=== PATIENT | female | born 1960 | race Native Hawaiian/Other Pacific Islander ===

== ENCOUNTER 2017-04-27 04:13 | Inpatient (IN) | payer OTHER ==
[2017-04-27] MEDS ORDERED: ASPIRIN PO ONE ×2 (05:00→07:20)
[2017-04-27 05:27] LABS: Basophils % (Auto) 0.7 % (0.0-1.8); Eosinophils # (Auto) 0.2 K/mm3 (0.0-0.4); Eosinophils % (Auto) 4.4 % (0.0-4.3); Hematocrit 41.4 % (30.3-42.9); Hemoglobin 14.1 gm/dl (10.1-14.3); Lymphocytes # (Auto) 0.9 K/mm3 (1.2-5.4); Lymphocytes % (Auto) 18.8 % (13.4-35.0); Mean Corpuscular HGB Conc 34 % (30-34); Mean Corpuscular Hemoglobin 32 pg (28-32); Mean Corpuscular Volume 94 fl (79-97); Monocytes # (Auto) 0.3 K/mm3 (0.0-0.8); Monocytes % (Auto) 6.6 % (0.0-7.3); Platelet Count 209 K/mm3 (140-440); Red Blood Count 4.41 M/mm3 (3.65-5.03); Red Cell Distribution Width 12.8 % (13.2-15.2)
[2017-04-27 05:45] LABS: BUN/Creatinine Ratio 20; Blood Urea Nitrogen 10 mg/dL (7-17); Calcium 9.2 mg/dL (8.4-10.2); Hemolysis Index 36
--- NOTE | 2017-04-27 06:41 | Emergency Department Report ---
ED Chest Pain HPI - General Chief Complaint: Chest Pain Stated Complaint: CHEST PAIN Time Seen by Provider: 04/27/17 06:40 Source: patient, EMS Mode of arrival: Stretcher Limitations: Language Barrier - History of Present Illness Initial Comments: The patient is very pleasant Khmer-speaking female who states he's never experienced chest pain or pressure like she did yesterday. She stated that it was quite persistent during the day but now it has resolved. She states that she has not been previously diagnosed with hypertension. However she has not seen a doctor for at least 2 years. She has had no prior workup for chest pain. She also had some headache earlier which is moderate in intensity. This is now resolved. She was given clonidine which was associated with a decrease in her blood pressure as well as her symptoms. MD Complaint: chest pain -: hour(s) Onset: during rest Pain Location: substernal, left chest Pain Radiation: none Severity scale (0 -10): 6 Quality: pressure Consistency: now resolved Improves With: nothing Worsens With: nothing re: dyspnea, other (headache). denies: nausea, vomting, diaphoresis Other Symptoms: denies: cough, fever, syncope Treatments Prior to Arrival: none - Related Data Allergies Allergy/AdvReac Type Severity Reaction Status Date / Time No Known Allergies Allergy Unverified 04/27/17 04:55 Heart Score - HEART Score History: Moderately suspicious EKG: Normal Age: 45-65 Risk factors: 1-2 risk factors Troponin: < normal limit HEART Score: 3 ED Review of Systems ROS: Stated complaint: CHEST PAIN Other details as noted in HPI Constitutional: denies: chills, fever Eyes: denies: eye pain, eye discharge, vision change ENT: denies: ear pain, throat pain Respiratory: shortness of breath. denies: cough, wheezing Cardiovascular: chest pain. denies: palpitations Endocrine: no symptoms reported Gastrointestinal: denies: abdominal pain, nausea, diarrhea Genitourinary: denies: urgency, dysuria, discharge Musculoskeletal: denies: back pain, joint swelling, arthralgia Skin: denies: rash, lesions Neurological: denies: headache, weakness, paresthesias Psychiatric: denies: anxiety, depression Hematological/Lymphatic: denies: easy bleeding, easy bruising ED Past Medical Hx - Past Medical History Previous Medical History?: Yes Hx Hypertension: Yes - Surgical History Past Surgical History?: No - Social History Smoking Status: Never Smoker Substance Use Type: None ED Physical Exam - General Limitations: Other (history obtained by me in Khmer) General appearance: alert, in no apparent distress - Head Head exam: Present: atraumatic, normocephalic - Eye Eye exam: Present: normal appearance. Absent: scleral icterus - ENT ENT exam: Present: mucous membranes moist - Neck Neck exam: Present: normal inspection - Respiratory Respiratory exam: Present: normal lung sounds bilaterally. Absent: respiratory distress - Cardiovascular Cardiovascular Exam: Present: regular rate, normal rhythm. Absent: systolic murmur, diastolic murmur, rubs, gallop - GI/Abdominal GI/Abdominal exam: Present: soft, normal bowel sounds. Absent: distended, tenderness, guarding, rebound, rigid - Extremities Exam Extremities exam: Present: normal inspection - Back Exam Back exam: Present: normal inspection - Neurological Exam Neurological exam: Present: alert, oriented X3, CN II-XII intact. Absent: motor sensory deficit - Psychiatric Psychiatric exam: Present: normal affect, normal mood - Skin Skin exam: Present: warm, dry, intact, normal color. Absent: rash ED Course Vital Signs 04/27/17 04/27/17 04/27/17 04:55 05:32 07:36 Temperature 98.0 F 98.3 F 98.4 F Pulse Rate 89 75 66 Respiratory 16 16 Rate Blood Pressure 214/106 Blood Pressure 188/93 181/99 [Left] O2 Sat by Pulse 98 98 100 Oximetry - Reevaluation(s) Reevaluation #1: Nitro paste, aspirin, admission to telemetry by Dr. Farrell of the hospitalist service and patient is in stable condition. 04/27/17 07:38 NALDO score - Naldo Score Age > 65: (0) No Aspirin use within the Past 7 Days: (0) No 3 or more CAD Risk Factors: (1) Yes 2 or more Angina events in past 24 hrs: (1) Yes Known CAD with more than 50% Stenosis: (0) No Elevated Cardiac Markers: (0) No ST Deviation Greater than 0.5mm: (0) No NALDO Score: 2 ED Medical Decision Making - Lab Data Result diagrams: 04/27/17 05:07 04/27/17 05:07 Laboratory Results - last 24 hr 04/27/17 04/27/17 05:07 05:07 WBC 4.7 RBC 4.41 Hgb 14.1 Hct 41.4 MCV 94 MCH 32 MCHC 34 RDW 12.8 L Plt Count 209 Lymph % (Auto) 18.8 [place] % (Auto) 6.6 Eos % (Auto) 4.4 H Baso % (Auto) 0.7 Lymph # 0.9 L [place] # 0.3 Eos # 0.2 Baso # 0.0 Seg Neutrophils % 69.5 Seg Neutrophils # 3.3 Sodium 142 Potassium 4.1 Chloride 103.0 Carbon Dioxide 24 Anion Gap 19 BUN 10 Creatinine 0.5 L Estimated GFR > 60 BUN/Creatinine Ratio 20 Glucose 112 H Calcium 9.2 Troponin T < 0.010 - EKG Data -: EKG Interpreted by Me EKG shows normal: sinus rhythm, axis, intervals, QRS complexes, ST-T waves Rate: normal - EKG Data Interpretation: LVH (left axis voltage suggestive of LVH. Repolarization segments are acceptable) - Radiology Data interpreted by me: Chest x-ray no acute findings Critical care attestation.: If time is entered above; I have spent that time in minutes in the direct care of this critically ill patient, excluding procedure time. ED Disposition Clinical Impression: Uncontrolled hypertension Chest pain Qualifiers: Chest pain type: unspecified Qualified Code(s): R07.9 - Chest pain, unspecified Disposition: OP ADMIT IP TO THIS HOSP Is pt being admited?: Yes Does the pt Need Aspirin: Yes Condition: Stable Instructions: Chest Pain (ED), Hypertension (ED) Referrals: JAMILAH TOMAS MD [Primary Care Provider] - 3-5 Days Time of Disposition: 08:11
[2017-04-27] MEDS ORDERED: NITRO-BID 2% TP ONE (07:20)
[2017-04-27 08:22] LABS: Bacteria,Urine 1+ /HPF (Negative); Bilirubin,Urine NEG (Negative); Blood,Urine NEG (Negative); Color,Urine Straw (Yellow); Mucus,Urine FEW /HPF; Nitrite,Urine NEG (Negative); Protein,Urine <15 mg/dL mg/dL (Negative); RBC,Urine < 1.0 /HPF (0.0-6.0); Urobilinogen,Urine < 2.0 mg/dL (<2.0)
--- NOTE | 2017-04-27 09:17 | XRay Report ---
AP CHEST : 04/27/17 CLINICAL: Hypertension. COMPARISON:None FINDINGS: Normal heart and pulmonary vessels. The lungs are normally expanded and clear. The bones and soft tissues are unremarkable. IMPRESSION: Normal chest.
[2017-04-27] MEDS ORDERED: TYLENOL PO PRN (11:38)
[2017-04-27] MEDS ORDERED: MILK OF MAGNESIA PO PRN (11:38)
[2017-04-27] MEDS ORDERED: PERCOCET 5/325 PO PRN (11:38)
[2017-04-27] MEDS ORDERED: ZOFRAN IV PRN (11:38)
[2017-04-27] MEDS ORDERED: AMBIEN PO PRN (11:38)
[2017-04-27] MEDS ORDERED: DULCOLAX PR PRN (11:38)
[2017-04-27] MEDS ORDERED: MORPHINE IV PRN ×2 (11:38)
--- NOTE | 2017-04-27 11:38 | History and Physical Report ---
History of Present Illness Date of examination: 04/27/17 Date of admission: 04/27/17 Chief complaint: CC L side Cp since yesterday History of present illness: History of Present Illness Very pleasant Vietnamese-speaking female comes in for chest pain since yesterday. She stated that it was quite persistent during the day but now it has resolved. She states that she has not been previously diagnosed with hypertension. However she has not seen a doctor for at least 2 years. She has had no prior workup for chest pain. She also had some headache earlier which is moderate in intensity. This is now resolved. She was given clonidine which was associated with a decrease in her blood pressure as well as her symptoms.Pain is 6/10.Dull intermittent.No diaphoresis or SOB.No palpitations.No fever or chills.No exacerbating or relieving factors. Past Medical History Previous Medical History?: Yes Hx Hypertension: Yes - Surgical History Past Surgical History?: No - Social History Smoking Status: Never Smoker Substance Use Type: None Fam Hx Htn Medications and Allergies Allergies Allergy/AdvReac Type Severity Reaction Status Date / Time No Known Allergies Allergy Unverified 04/27/17 04:55 Review of Systems All systems: negative Exam - Constitutional Vitals: Temp Pulse Resp BP Pulse Ox 98.3 F 78 16 157/79 100 04/27/17 10:30 04/27/17 10:30 04/27/17 10:30 04/27/17 10:30 04/27/17 10:30 General appearance: Present: no acute distress, well-nourished - EENT Eyes: Present: PERRL ENT: hearing intact, clear oral mucosa - Neck Neck: Present: supple, normal ROM - Respiratory Respiratory effort: normal Respiratory: bilateral: CTA - Cardiovascular Heart rate: 78 Rhythm: regular Heart Sounds: Present: S1 & S2. Absent: rub, click - Extremities Extremities: no ischemia, pulses intact, pulses symmetrical, No edema Peripheral Pulses: within normal limits - Abdominal General gastrointestinal: Present: soft, non-tender, non-distended, normal bowel sounds Female genitourinary: Present: normal - Rectal Rectal Exam: deferred - Integumentary Integumentary: Present: clear, warm, dry - Musculoskeletal Musculoskeletal: gait normal, strength equal bilaterally - Psychiatric Psychiatric: appropriate mood/affect, intact judgment & insight - Neurologic Neurologic: CNII-XII intact, moves all extremities - Allied Health Allied health notes reviewed: nursing, case management Results - Labs CBC & Chem 7: 04/28/17 05:55 04/28/17 05:55 Labs: Laboratory Last Values WBC 4.7 K/mm3 (4.5-11.0) 04/27/17 05:07 RBC 4.41 M/mm3 (3.65-5.03) 04/27/17 05:07 Hgb 14.1 gm/dl (10.1-14.3) 04/27/17 05:07 Hct 41.4 % (30.3-42.9) 04/27/17 05:07 MCV 94 fl (79-97) 04/27/17 05:07 MCH 32 pg (28-32) 04/27/17 05:07 MCHC 34 % (30-34) 04/27/17 05:07 RDW 12.8 % (13.2-15.2) L 04/27/17 05:07 Plt Count 209 K/mm3 (140-440) 04/27/17 05:07 Lymph % (Auto) 18.8 % (13.4-35.0) 04/27/17 05:07 [place] % (Auto) 6.6 % (0.0-7.3) 04/27/17 05:07 Eos % (Auto) 4.4 % (0.0-4.3) H 04/27/17 05:07 Baso % (Auto) 0.7 % (0.0-1.8) 04/27/17 05:07 Lymph # 0.9 K/mm3 (1.2-5.4) L 04/27/17 05:07 [place] # 0.3 K/mm3 (0.0-0.8) 04/27/17 05:07 Eos # 0.2 K/mm3 (0.0-0.4) 04/27/17 05:07 Baso # 0.0 K/mm3 (0.0-0.1) 04/27/17 05:07 Seg Neutrophils % 69.5 % (40.0-70.0) 04/27/17 05:07 Seg Neutrophils # 3.3 K/mm3 (1.8-7.7) 04/27/17 05:07 POC ABG pH 7.418 (7.35-7.45) 04/27/17 09:37 POC ABG pCO2 45.2 (35-45) H 04/27/17 09:37 POC ABG pO2 54 (80-105) L 04/27/17 09:37 POC ABG HCO3 29.2 04/27/17 09:37 POC ABG Total CO2 31 04/27/17 09:37 POC ABG O2 Sat 88 04/27/17 09:37 POC ABG Base Excess 5 04/27/17 09:37 VBG pH 7.418 (7.320-7.420) 04/27/17 09:00 FiO2 21 % 04/27/17 09:37 Sodium 142 mmol/L (137-145) 04/27/17 05:07 Potassium 4.1 mmol/L (3.6-5.0) 04/27/17 05:07 Chloride 103.0 mmol/L (98-107) 04/27/17 05:07 Carbon Dioxide 24 mmol/L (22-30) 04/27/17 05:07 Anion Gap 19 mmol/L 04/27/17 05:07 BUN 10 mg/dL (7-17) 04/27/17 05:07 Creatinine 0.5 mg/dL (0.7-1.2) L 04/27/17 05:07 Estimated GFR > 60 ml/min 04/27/17 05:07 BUN/Creatinine Ratio 20 % 04/27/17 05:07 Glucose 112 mg/dL (65-100) H 04/27/17 05:07 Calcium 9.2 mg/dL (8.4-10.2) 04/27/17 05:07 Troponin T < 0.010 ng/mL (0.00-0.029) 04/27/17 10:53 Urine Color Straw (Yellow) 04/27/17 07:47 Urine Turbidity Clear (Clear) 04/27/17 07:47 Urine pH 7.0 (5.0-7.0) 04/27/17 07:47 Ur Specific [place] 1.008 (1.003-1.030) 04/27/17 07:47 Urine Protein <15 mg/dl mg/dL (Negative) 04/27/17 07:47 Urine Glucose (UA) Neg mg/dL (Negative) 04/27/17 07:47 Urine Ketones Neg mg/dL (Negative) 04/27/17 07:47 Urine Blood Neg (Negative) 04/27/17 07:47 Urine Nitrite Neg (Negative) 04/27/17 07:47 Urine Bilirubin Neg (Negative) 04/27/17 07:47 Urine Urobilinogen < 2.0 mg/dL (<2.0) 04/27/17 07:47 Ur Leukocyte Esterase Tr (Negative) 04/27/17 07:47 Urine WBC (Auto) 1.0 /HPF (0.0-6.0) 04/27/17 07:47 Urine RBC (Auto) < 1.0 /HPF (0.0-6.0) 04/27/17 07:47 U Epithel Cells (Auto) < 1.0 /HPF (0-13.0) 04/27/17 07:47 Urine Bacteria (Auto) 1+ /HPF (Negative) 04/27/17 07:47 Urine Mucus Few /HPF 04/27/17 07:47 Short CBC 04/28/17 Range/Units 05:55 WBC 4.4 L (4.5-11.0) K/mm3 Hgb 13.7 (10.1-14.3) gm/dl Hct 40.9 (30.3-42.9) % Plt Count 199 (140-440) K/mm3 BMP 04/28/17 05:55 Sodium 145 Potassium 3.9 Chloride 106.0 Carbon Dioxide 27 BUN 18 H Creatinine 0.7 Glucose 102 H Calcium 9.1 Cardiac Enzymes 04/27/17 04/27/17 04/27/17 Range/Units 08:10 10:53 11:45 Total Creatine Kinase 54 (30-135) units/L CK-MB (CK-2) 1.6 (0.0-4.0) ng/mL Troponin T < 0.010 < 0.010 < 0.010 (0.00-0.029) ng/mL 04/27/17 04/28/17 Range/Units 18:40 00:00 Total Creatine Kinase 56 44 (30-135) units/L CK-MB (CK-2) 1.5 1.2 (0.0-4.0) ng/mL Troponin T < 0.010 < 0.010 (0.00-0.029) ng/mL Liver Function 04/28/17 Range/Units 05:55 Total Bilirubin 1.20 (0.1-1.2) mg/dL AST 32 (5-40) units/L ALT 49 (7-56) units/L Alkaline Phosphatase 59 (35-129) units/L Albumin 3.9 (3.9-5) g/dL Urine 04/27/17 Range/Units 07:47 Urine Color Straw (Yellow) Urine pH 7.0 (5.0-7.0) Ur Specific [place] 1.008 (1.003-1.030) Urine Protein <15 mg/dl (Negative) mg/dL Urine Glucose (UA) Neg (Negative) mg/dL - Imaging and Cardiology EKG: report reviewed (NSR) Chest x-ray: report reviewed (NAF) Assessment and Plan Advance Directives: Yes (Full code) VTE prophylaxis?: Chemical Plan of care discussed with patient/family: Yes - Patient Problems (1) Chest pain Current Visit: Yes Status: Acute Qualifiers: Chest pain type: unspecified Qualified Code(s): R07.9 - Chest pain, unspecified Plan to address problem: Chest pain w/u. Serial cardiac enzymes and lexiscan in am R/o Gastritis and costochondritis (2) Uncontrolled hypertension Current Visit: Yes Status: Chronic Plan to address problem: Patient initiated on Losartan 100 mg po qd (3) DVT prophylaxis Current Visit: Yes Status: Acute Plan to address problem: on Lovenox
[2017-04-27] MEDS: PEPCID PO SCH ×2 (12:11→22:10)
[2017-04-27] MEDS: LOVENOX SUB-Q SCH (12:13)
[2017-04-27 13:39] LABS: Creatine Kinase MB 1.6 ng/mL (0.0-4.0)
[2017-04-27 19:27] LABS: Creatine Kinase MB 1.5 ng/mL (0.0-4.0)
[2017-04-28 00:48] LABS: Creatine Kinase MB 1.2 ng/mL (0.0-4.0)
[2017-04-28 06:50] LABS: Basophils % (Auto) 0.6 % (0.0-1.8); Eosinophils # (Auto) 0.2 K/mm3 (0.0-0.4); Eosinophils % (Auto) 4.6 % (0.0-4.3); Hematocrit 40.9 % (30.3-42.9); Hemoglobin 13.7 gm/dl (10.1-14.3); Lymphocytes # (Auto) 1.3 K/mm3 (1.2-5.4); Lymphocytes % (Auto) 28.6 % (13.4-35.0); Mean Corpuscular HGB Conc 34 % (30-34); Mean Corpuscular Hemoglobin 32 pg (28-32); Mean Corpuscular Volume 95 fl (79-97); Monocytes # (Auto) 0.3 K/mm3 (0.0-0.8); Monocytes % (Auto) 7.4 % (0.0-7.3); Platelet Count 199 K/mm3 (140-440); Red Blood Count 4.32 M/mm3 (3.65-5.03); Red Cell Distribution Width 13.1 % (13.2-15.2)
[2017-04-28 07:15] LABS: Alanine Aminotransferase 49 units/L (7-56); Albumin 3.9 g/dL (3.9-5); BUN/Creatinine Ratio 26; Blood Urea Nitrogen 18 mg/dL (7-17); Calcium 9.1 mg/dL (8.4-10.2); Hemolysis Index 2
[2017-04-28] MEDS ORDERED: LEXISCAN IV ONE ×2 (08:09→08:19)
[2017-04-28] MEDS: PEPCID PO SCH ×2 (10:45→21:48)
[2017-04-28] MEDS: LOVENOX SUB-Q SCH (13:45)
[2017-04-29] MEDS ORDERED: APRESOLINE IV PRN (00:17)
--- NOTE | 2017-04-29 00:55 | Treadmill Report ---
NUCLEAR PERFUSION SCAN REFERRING PHYSICIAN: Dr. Polanco. PROTOCOL: The patient was brought to the stress lab in post-absorptive state, given 10 mCi of technetium 99m at rest. The patient underwent rest imaging. The patient underwent Lexiscan stress test per standard protocol. At peak stress, the patient was given 26 mCi of technetium 99m. Shortly thereafter, the patient underwent stress imaging. Raw imaging reveals mild GI artifact, no significant motion artifact. SPECT imaging examined carefully in horizontal long axis, vertical long axis, and short axis views. There is normal homogenous uptake of radioisotope in all reported segments. No evidence of a significant fixed or reversible perfusion defect suggestive of prior infarction or ischemia. Gated wall motion reveals normal systolic thickening, calculated ejection fraction of 55%. No TID. CONCLUSIONS: 1. Normal myocardial perfusion scan without evidence of active ischemia or prior infarction. 2. Normal left ventricular systolic performance without evidence of transient ischemic dilatation or stress-induced segmental wall motion abnormalities. JOB# [id number] SHANE/TANIA
[2017-04-29] MEDS: LOVENOX SUB-Q SCH (10:24)
[2017-04-29] MEDS: PEPCID PO SCH (12:25)
[2017-04-29] MEDS ORDERED: ZESTRIL PO SCH (13:00)
[2017-04-29] MEDS ORDERED: NORVASC PO SCH (13:00)
--- NOTE | 2017-04-29 13:25 | Progress Note ---
Subjective Date of service: 04/28/17 Objective - Constitutional Vitals: Vital Signs - 12hr 04/29/17 04/29/17 04/29/17 04:23 08:47 08:58 Temperature 98.4 F Pulse Rate 74 84 Respiratory 20 Rate Blood Pressure 188/93 174/106 174/106 O2 Sat by Pulse 96 97 Oximetry - Labs CBC & Chem 7: 04/28/17 05:55 04/28/17 05:55
[2017-04-29 13:43] VITALS: BP 169/94
--- NOTE | 2017-04-29 14:19 | Discharge Summary ---
Providers - Providers Date of Admission: 04/27/17 16:46 Date of discharge: 04/29/17 Attending physician: ELMO GODINEZ none Primary care physician: JAMILAH TOMAS Hospitalization Reason for admission: chest pain Condition: Stable Pertinent studies: Stress thallium Procedures: none Hospital course: Patient is a 56 y/o very pleasant Turkmen-speaking female comes in for chest pain since yesterday. She stated that it was quite persistent during the day but now it has resolved. She states that she has not been previously diagnosed with hypertension. However she has not seen a doctor for at least 2 years. She has had no prior workup for chest pain. She also had some headache earlier which is moderate in intensity. This is now resolved. She was given clonidine which was associated with a decrease in her blood pressure as well as her symptoms.Pain is 6/10.Dull intermittent.No diaphoresis or SOB.No palpitations.No fever or chills.No exacerbating or relieving factors. on admission she was commenced on Disposition: TO HOME OR SELFCARE Core Measure Documentation - Palliative Care Palliative Care/ Comfort Measures: Not Applicable Exam - Constitutional Vitals: Temp Pulse Resp BP Pulse Ox 97.4 F L 109 H 20 169/94 97 04/29/17 12:30 04/29/17 12:30 04/29/17 04:23 04/29/17 12:30 04/29/17 08:47 General appearance: Present: no acute distress, well-nourished - EENT Eyes: Present: PERRL - Neck Neck: Present: supple, normal ROM - Respiratory Respiratory effort: normal Respiratory: bilateral: CTA - Cardiovascular Heart Sounds: Present: S1 & S2. Absent: rub, click - Extremities Extremities: pulses symmetrical, No edema Peripheral Pulses: within normal limits - Abdominal General gastrointestinal: Present: soft, non-tender, non-distended, normal bowel sounds Female genitourinary: Present: normal - Integumentary Integumentary: Present: clear, warm, dry - Musculoskeletal Musculoskeletal: gait normal, strength equal bilaterally - Psychiatric Psychiatric: appropriate mood/affect, intact judgment & insight - Neurologic Neurologic: CNII-XII intact, moves all extremities Plan Activity: advance as tolerated, fall precautions Diet: regular Wound: open to air Follow up with: JAMILAH TOMAS MD [Primary Care Provider] - 3-5 Days Prescriptions: amLODIPine [Norvasc] 10 mg PO QDAY #30 tablet Famotidine [Pepcid] 20 mg PO BID #60 tablet Lisinopril [Zestril TAB] 40 mg PO QDAY #30 tablet Temazepam 15 mg PO DAILY #24 capsule
== END 2017-04-29 15:12 | disposition home or self-care (01) | DRG 313 ==
LOC: ED 04:13 → 4A 16:46
PROVIDERS: ADMIT Internal Medicine; ATTEND Family Medicine
DX: R07.9 Chest pain, unspecified (principal); I10 Essential (primary) hypertension
CPT/HCPCS: 36415; 71045; 78452; 80048; 80053; 81001; 82550; 82553; 82803; 82805; 82962; 83036; 84484; 85025; 93005; 93010; 93017; 99285; A9502; J0360; J1650; J2270; J2785

== ENCOUNTER 2017-06-08 02:58 | Inpatient (IN) | payer SELFPAY ==
[2017-06-08] MEDS ORDERED: ASPIRIN PO ONE (04:33)
[2017-06-08 05:53] LABS: BUN/Creatinine Ratio 32; Blood Urea Nitrogen 16 mg/dL (7-17); Calcium 9.5 mg/dL (8.4-10.2); Hemolysis Index 6
[2017-06-08 05:59] LABS: Basophils % (Auto) 0.4 % (0.0-1.8); Eosinophils # (Auto) 0.1 K/mm3 (0.0-0.4); Eosinophils % (Auto) 1.7 % (0.0-4.3); Hematocrit 40.1 % (30.3-42.9); Hemoglobin 13.5 gm/dl (10.1-14.3); Lymphocytes % (Auto) 16.4 % (13.4-35.0); Mean Corpuscular HGB Conc 34 % (30-34); Mean Corpuscular Hemoglobin 32 pg (28-32); Mean Corpuscular Volume 94 fl (79-97); Monocytes # (Auto) 0.3 K/mm3 (0.0-0.8); Monocytes % (Auto) 5.3 % (0.0-7.3); Platelet Count 243 K/mm3 (140-440); Red Blood Count 4.26 M/mm3 (3.65-5.03); Red Cell Distribution Width 13.2 % (13.2-15.2)
--- NOTE | 2017-06-08 06:50 | Emergency Department Report ---
HPI - General Chief Complaint: Neuro Symptoms/Deficit Time Seen by Provider: 06/08/17 06:33 - HPI HPI: Room 4 The patient is a 57-year-old female presenting with a chief complaint chest pressure and left-sided numbness. The patient states this morning at 01:00 she developed pressure in the left chest in addition to numbness of her left arm and left leg. Patient states the pressure and numbness has been coming and going but is currently absent. Patient denies nausea/vomiting or diaphoresis with her chest pressure. The patient states the top of her head felt hot. The patient last had a stress test last month Location: [See above] Duration: Intermittent since 01:00 Quality:, Pressure, Numbness Severity: Moderate Modifying factors: [see above] Context: [see above] Mode of transportation: [not driving] ED Past Medical Hx - Past Medical History Hx Hypertension: Yes - Surgical History Past Surgical History?: Yes Additional Surgical History: Hysterectomy - Family History Family history: no significant - Social History Smoking Status: Never Smoker Substance Use Type: None - Medications Home Medications: Home Medications Medication Instructions Recorded Confirmed Last Taken Type Famotidine [Pepcid] 20 mg PO BID #60 tablet 04/29/17 Unknown Rx Lisinopril [Zestril TAB] 40 mg PO QDAY #30 tablet 04/29/17 Unknown Rx Temazepam 15 mg PO DAILY #24 capsule 04/29/17 Unknown Rx amLODIPine [Norvasc] 10 mg PO QDAY #30 tablet 04/29/17 Unknown Rx ED Review of Systems ROS: Stated complaint: HTN Other details as noted in HPI Constitutional: denies: diaphoresis Respiratory: denies: shortness of breath Cardiovascular: chest pain (chest pressure) Gastrointestinal: denies: nausea, vomiting Neurological: denies: headache (head felt hot) Physical Exam - Physical Exam Vital Signs: Vital Signs 06/08/17 06/08/17 06/08/17 04:11 06:15 06:19 Temperature 97.5 F L Pulse Rate 73 Respiratory 18 18 Rate Blood Pressure 143/78 O2 Sat by Pulse 98 96 99 Oximetry 06/08/17 06:20 Temperature Pulse Rate Respiratory Rate Blood Pressure 128/73 O2 Sat by Pulse 95 Oximetry Physical Exam: GENERAL: The patient is well-developed well-nourished female lying on stretcher not appearing to be in acute distress. [] HEENT: Normocephalic. Atraumatic. Extraocular motions are intact. Patient has moist mucous membranes. NECK: Supple. No meningitic signs are noted. There is no adenopathy noted. CHEST/LUNGS: Clear to auscultation. There is no respiratory distress noted. HEART/CARDIOVASCULAR: Regular. There is no tachycardia. There is no gallop rub or murmur. ABDOMEN: Abdomen is soft, nontender. Patient has normal bowel sounds. There is no abdominal distention. SKIN: There is no rash. There is no edema. There is no diaphoresis. NEURO: The patient is awake, alert, and oriented. The patient is cooperative. The patient has no focal neurologic deficits. The patient has normal speech. Cranial nerves II through XII grossly intact, no drift MUSCULOSKELETAL: There is no evidence of acute injury. ED Course Vital Signs 06/08/17 06/08/17 06/08/17 04:11 06:15 06:19 Temperature 97.5 F L Pulse Rate 73 Respiratory 18 18 Rate Blood Pressure 143/78 O2 Sat by Pulse 98 96 99 Oximetry 06/08/17 06:20 Temperature Pulse Rate Respiratory Rate Blood Pressure 128/73 O2 Sat by Pulse 95 Oximetry ED Medical Decision Making - Lab Data Result diagrams: 06/08/17 05:13 06/08/17 05:13 Laboratory Tests 06/08/17 06/08/17 06/08/17 05:13 05:13 05:13 WBC 6.1 RBC 4.26 Hgb 13.5 Hct 40.1 MCV 94 MCH 32 MCHC 34 RDW 13.2 Plt Count 243 Lymph % (Auto) 16.4 [place] % (Auto) 5.3 Eos % (Auto) 1.7 Baso % (Auto) 0.4 Lymph # 1.0 L [place] # 0.3 Eos # 0.1 Baso # 0.0 Seg Neutrophils % 76.2 H Seg Neutrophils # 4.7 Sodium 143 Potassium 4.0 Chloride 101.2 Carbon Dioxide 26 Anion Gap 20 BUN 16 Creatinine 0.5 L Estimated GFR > 60 BUN/Creatinine Ratio 32 Glucose 108 H Calcium 9.5 Troponin T < 0.010 - EKG Data -: EKG Interpreted by Oh EKG shows normal: sinus rhythm Rate: normal - EKG Data When compared to previous EKG there are: no significant change Interpretation: unchanged when compared t (04/27/2017) - Radiology Data Radiology results: report reviewed (CT head), image reviewed (CT head) FINAL REPORT PROCEDURE: CT HEAD/BRAIN WO CON TECHNIQUE: Computerized tomography of the head was performed without contrast material. HISTORY: left-sided paresthesia COMPARISON: No prior studies are available for comparison. FINDINGS: Skull and scalp: Normal. Paranasal sinuses: Normal. Ventricles and subarachnoid spaces: Normal. Cerebrum: No evidence of hemorrhage, acute infarction or mass . Cerebellum and brainstem: No evidence of hemorrhage, acute infarction or mass. Vasculature: Normal. Comments: None. IMPRESSION: Normal Examination Transcribed By: CO Dictated By: TASHA KANG MD Electronically Authenticated By: TASHA KANG MD Signed Date/Time: 06/08/17338 DD/ 8 TD/TT: 06/08/17338 - Medical Decision Making NIHSS= 0 - Differential Diagnosis TIA, ACS, GERD, pericarditis Critical care attestation.: If time is entered above; I have spent that time in minutes in the direct care of this critically ill patient, excluding procedure time. ED Disposition Clinical Impression: TIA (transient ischemic attack), Chest pain, Left sided numbness Disposition: -09 OP ADMIT IP TO THIS HOSP Is pt being admited?: Yes Does the pt Need Aspirin: Yes Condition: Fair Instructions: Chest Pain (ED) Referrals: PRIMARY CAREMD [Primary Care Provider] - 3-5 Days Time of Disposition: 07:48 (hospitalist paged)
--- NOTE | 2017-06-08 07:44 | Cat Scan Report ---
FINAL REPORT PROCEDURE: CT HEAD/BRAIN WO CON TECHNIQUE: Computerized tomography of the head was performed without contrast material. HISTORY: left-sided paresthesia COMPARISON: No prior studies are available for comparison. FINDINGS: Skull and scalp: Normal. Paranasal sinuses: Normal. Ventricles and subarachnoid spaces: Normal. Cerebrum: No evidence of hemorrhage, acute infarction or mass . Cerebellum and brainstem: No evidence of hemorrhage, acute infarction or mass. Vasculature: Normal. Comments: None. IMPRESSION: Normal Examination
--- NOTE | 2017-06-08 10:43 | History and Physical Report ---
History of Present Illness Date of examination: 06/08/17 History of present illness: The patient is a 57-year-old female presenting with a chief complaint chest pressure and left-sided numbness. The patient states this morning at 01:00 she developed pressure in the left chest in addition to numbness of her left arm and left leg. Patient states the pressure and numbness has been coming and going but is currently absent. Patient denies nausea/vomiting or diaphoresis with her chest pressure. The patient states the top of her head felt hot. The patient last had a stress test last month Medications and Allergies Allergies Allergy/AdvReac Type Severity Reaction Status Date / Time No Known Allergies Allergy Unverified 04/27/17 04:55 Home Medications Medication Instructions Recorded Confirmed Last Taken Type Famotidine [Pepcid] 20 mg PO BID #60 tablet 04/29/17 Unknown Rx Lisinopril [Zestril TAB] 40 mg PO QDAY #30 tablet 04/29/17 Unknown Rx Temazepam 15 mg PO DAILY #24 capsule 04/29/17 Unknown Rx amLODIPine [Norvasc] 10 mg PO QDAY #30 tablet 04/29/17 Unknown Rx Exam - Constitutional Vitals: Temp Pulse Resp BP Pulse Ox 98.1 F 73 18 133/67 94 06/08/17 08:25 06/08/17 04:11 06/08/17 06:19 06/08/17 09:20 06/08/17 09:20 Results - Labs CBC & Chem 7: 06/08/17 05:13 06/08/17 05:13 Labs: Abnormal lab results 06/08/17 06/08/17 Range/Units 05:13 05:13 Lymph # 1.0 L (1.2-5.4) K/mm3 Seg Neutrophils % 76.2 H (40.0-70.0) % Creatinine 0.5 L (0.7-1.2) mg/dL Glucose 108 H (65-100) mg/dL
[2017-06-08] MEDS ORDERED: MORPHINE IV PRN (10:44)
[2017-06-08] MEDS ORDERED: SODIUM CHLORIDE FLUSH SYRINGE 10 ML IV PRN (10:44)
[2017-06-08] MEDS ORDERED: NITROSTAT SL PRN (10:44)
[2017-06-08 11:08] LABS: Basophils % (Auto) 0.6 % (0.0-1.8); Eosinophils # (Auto) 0.1 K/mm3 (0.0-0.4); Eosinophils % (Auto) 2.4 % (0.0-4.3); Hematocrit 38.5 % (30.3-42.9); Hemoglobin 12.9 gm/dl (10.1-14.3); Lymphocytes % (Auto) 22.8 % (13.4-35.0); Mean Corpuscular HGB Conc 34 % (30-34); Mean Corpuscular Hemoglobin 31 pg (28-32); Mean Corpuscular Volume 93 fl (79-97); Monocytes # (Auto) 0.4 K/mm3 (0.0-0.8); Monocytes % (Auto) 8.2 % (0.0-7.3); Platelet Count 227 K/mm3 (140-440); Red Blood Count 4.14 M/mm3 (3.65-5.03)
[2017-06-08 11:24] LABS: BUN/Creatinine Ratio 26; Blood Urea Nitrogen 13 mg/dL (7-17); Calcium 9.3 mg/dL (8.4-10.2); Hemolysis Index 6
[2017-06-08] MEDS ORDERED: PROTONIX PO SCH (11:30)
[2017-06-08 11:44] VITALS: BP 133/64
[2017-06-09] MEDS ORDERED: ECOTRIN PO SCH (10:00)
== END 2017-06-08 13:57 | disposition left against medical advice (07) | DRG 69 ==
LOC: ED 02:58 → 4A 12:01
PROVIDERS: ADMIT Internal Medicine; ATTEND Internal Medicine
DX: G45.9 Transient cerebral ischemic attack, unspecified (principal); I10 Essential (primary) hypertension; R07.9 Chest pain, unspecified; Z79.899 Other long term (current) drug therapy; Z90.710 Acquired absence of both cervix and uterus
CPT/HCPCS: 36415; 70450; 80048; 84484; 85025; 93005; 93010; A9270-GY